=== PATIENT | female | born 1990 | race Caucasian/White ===

== ENCOUNTER 2018-04-10 19:33 | Emergency (ER) | payer OTHER ==
[2018-04-10 19:57] VITALS: BP 130/67; PULSE 94; TEMP 98.1; BMI 18.6
[2018-04-10] MEDS ORDERED: SUMATRIPTAN SUCCINATE 6 MG/0.5 ML VIAL SQ ONE (20:22)
--- NOTE | 2018-04-10 20:29 | PDOC ---
History of Present Illness - General Chief Complaint: Headache Stated Complaint: HEADACHE Time Seen by Provider: 04/10/18 20:09 History Source: Patient Exam Limitations: No Limitations - History of Present Illness Initial Comments: 04/10/18 20:27 27F with pmh of asthma/bronchitis and migraine presents to the ED with headache and vomiting since today. She's had unremitting symptoms all day, not able to keep anything down. Bright light makes her uncomfotable and she had to call in sick for work at [employer]. She usually has photophobia during her migraines but she never vomited. She states that she hit her head against a glass panel at work on Friday and had a bump following that. Tried Motrin but with little benefit. 04/10/18 20:31 Past History - Past Medical History Allergies/Adverse Reactions: Allergies Allergy/AdvReac Type Severity Reaction Status Date / Time No Known Allergies Allergy Verified 03/06/15 20:19 Home Medications: Ambulatory Orders Sumatriptan Succ/Naproxen Sod [Sumatriptan-Naproxen 85-500 mg] 1 each PO PRN PRN #14 tablet 04/10/18 Asthma: Yes - Suicide/Smoking/Psychosocial Hx Smoking History: Former smoker Have you smoked in the past 12 months: No Information on smoking cessation initiated: No Hx Alcohol Use: No Drug/Substance Use Hx: No Review of Systems - Review of Systems Able to Perform ROS?: Yes Is the patient limited Sami proficient: No Constitutional: No: Symptoms Reported HEENTM: No: Symptoms Reported, Eye Pain, Blurred Vision, Tearing, Recent change in vision Respiratory: No: Symptoms reported Cardiac (ROS): No: Symptoms Reported ABD/GI: Yes: Nausea, Vomiting : No: Symptoms Reported Musculoskeletal: No: Symptoms Reported Integumentary: No: Symptoms Reported Neurological: Yes: Headache. No: Numbness, Seizure, Tremors, Weakness, Unsteady Gait, Ataxia All Other Systems: Reviewed and Negative *Physical Exam - Vital Signs Last Vital Signs Temp Pulse Resp BP Pulse Ox 98.1 F 94 H 18 130/67 100 04/10/18 19:52 04/10/18 19:52 04/10/18 19:52 04/10/18 19:52 04/10/18 19:52 - Physical Exam General Appearance: Yes: Nourished, Appropriately Dressed, Thin. No: Apparent Distress HEENT: positive: EOMI, NOAH, Normal ENT Inspection, Photophobia Respiratory/Chest: negative: Chest Tender, Lungs Clear, Normal Breath Sounds Cardiovascular: positive: Regular Rhythm, Regular Rate, S1, S2, Tachycardia Gastrointestinal/Abdominal: positive: Normal Bowel Sounds, Flat, Soft. negative : Tender, Organomegaly Musculoskeletal: positive: Normal Inspection. negative: CVA Tenderness Extremity: positive: Normal Capillary Refill, Normal Inspection, Normal Range of Motion Integumentary: positive: Normal Color, Dry, Warm Neurologic: positive: Fully Oriented, Alert, Normal Mood/Affect, Normal Response Medical Decision Making - Medical Decision Making 04/10/18 20:31 Headache is consistent with migraine presentation. Will treat with sumatriptan. Dont think that imaging is warranted, hit her head 4 days ago. 04/10/18 20:32 04/10/18 23:07 CT head Negative. *DC/Admit/Observation/Transfer Diagnosis at time of Disposition: Migraine - Discharge Dispostion Disposition: HOME Condition at time of disposition: Good Decision to Admit order: No - Referrals - Patient Instructions Printed Discharge Instructions: DI for Migraine Additional Instructions: Come back to the Ed for any new, worsening or concerning symptoms. backup engineer your prescription at the pharmacy. - Post Discharge Activity
--- NOTE | 2018-04-10 20:33 | PDOC ---
Attending Attestation - HPI HPI: The patient is a 27 year old female with a significant past medical history of asthma/bronchitis and migraines who presents to the emergency department for evaluation of headache and vomiting since today. The patient reports moderate frontal headache with associated vomiting since this morning. She reports associated symptom of photophobia. Pt states she had to call in sick for work at [employer]. The patient endorses history of migraines, but denies vomiting. She reports hitting her head against a glass panel at work on Friday and had a bump following that. Pt reports taking Motrin and Percocet with no alleviation to symptoms. The patient denies chest pain, shortness of breath, fever, chills, and any urinary/bowel symptoms. Allergies: NKDA. Social History: No reported alcohol, cigarette, or drug use. - Physicial Exam PE: GENERAL: Awake, alert, and fully oriented, in no acute distress HEAD: No signs of trauma EYES: PERRLA, EOMI, sclera anicteric, conjunctiva clear ENT: Auricles normal inspection, hearing grossly normal, nares patent, oropharynx clear without exudates. Moist mucosa NECK: Normal ROM, supple, no lymphadenopathy, JVD, or masses LUNGS: Breath sounds equal, clear to auscultation bilaterally. No wheezes, and no crackles HEART: Regular rate and rhythm, normal S1 and S2, no murmurs, rubs or gallops ABDOMEN: Soft, nontender, normoactive bowel sounds. No guarding, no rebound. No masses EXTREMITIES: Normal range of motion, no edema. No clubbing or cyanosis. No cords, erythema, or tenderness NEUROLOGICAL: Cranial nerves II through XII grossly intact. Normal speech, normal gait SKIN: Warm, Dry, normal turgor, no rashes or lesions noted. - Medical Decision Making Pt states she feels much better after Imitrex. <Melani Barakat - Last Filed: 04/10/18 23:27> - Resident Resident Name: Hugo Saba - ED Attending Attestation I have performed the following: I have examined & evaluated the patient, The case was reviewed & discussed with the resident, I agree w/resident's findings & plan - HPI HPI: 04/10/18 23:19 Pt comes with frontal JACKSON liuke her migraine. But states that NSAIDS are not helping the migraine as they usually do. 5 days ago she struck her head on a window/shelf at the [employer] [employer] [facility] [employer] where she works. - Medical Decision Making 04/11/18 06:36 CT head is normal; no subdural hematoma or other pathologic findings. Pt has a normal neuro exam and normal affect. SHe will follow with neuro as an outpatient and she will be given imitrex PO, as she responded well to them. <Montserrat St - Last Filed: 04/11/18 06:37> Attestations - Attestations Documentation prepared by Melani Barakat, acting as medical front desk coordinator for Montserrat [address] MD. <Melani Barakat - Last Filed: 04/10/18 23:27>
[2018-04-10 21:02] LABS: URINE APPEARANCE SLCLOUDY; URINE BILIRUBIN NEGATIVE (<2.0 mg/dL); URINE COLOR YELLOW; URINE GLUCOSE (UA) NEGATIVE (NEGATIVE); URINE KETONE TRACE (NEGATIVE); URINE LEUK ESTERASE NEGATIVE (NEGATIVE); URINE NITRITE NEGATIVE (NEGATIVE); URINE UROBILINOGEN NEGATIVE mg/dL (0.2-1.0)
[2018-04-10 21:03] LABS: HCG,QUALITATIVE URINE NEGATIVE; URINE PROTEIN 1+ (NEGATIVE)
[2018-04-10 21:06] LABS: EPI CELLS MANY /HPF (FEW); URINE BACTERIA RARE /hpf (NONE SEEN); URINE MUCUS MANY
== END 2018-04-10 23:35 | disposition home or self-care (01) ==
LOC: JER 19:33
PROC: 3E023GC Introduction of Other Therapeutic Substance into Muscle, Percutaneous Approach (ICD-10-PCS; principal; 2018-04-10)
DX: G43.909 Migraine, unspecified, not intractable, without status migrainosus (principal)
CPT/HCPCS: 70450-TC; 81003; 81015; 84703; 96372; 99282-25

== ENCOUNTER 2019-11-09 16:10 | Emergency (ER) | payer OTHER ==
[2019-11-09 16:47] VITALS: BP 142/79; PULSE 123; TEMP 98.7; BMI 21.2
[2019-11-09] MEDS ORDERED: DEXAMETHASONE LIQUID 0.5 MG/5 ML PO ONE (16:52)
--- NOTE | 2019-11-09 16:52 | PDOC ---
Rapid Medical Evaluation Chief Complaint: Sore Throat Medical Evaluation: Allergies Allergy/AdvReac Type Severity Reaction Status Date / Time No Known Allergies Allergy Verified 11/09/19 16:44 Vital Signs Temp Pulse Resp BP Pulse Ox 98.7 F 123 H 18 142/79 99 11/09/19 16:44 11/09/19 16:44 11/09/19 16:44 11/09/19 16:44 11/09/19 16:44 11/09/19 16:51 Pt c/o: continual diff swallowing, recent strep, on amoxicillin, hx enlarged tonsils but worse when gets strep Pt on brief exam: 3-4+ tosills, uvula midline, no erythema or exudate, Pt ordered for: decadron pt to proceed to the ED Discharge Disposition - Diagnosis Strep pharyngitis - Discharge Dispostion Disposition: HOME Condition at time of disposition: Stable - Prescriptions Prescriptions: Amox-Tr/K Cl [Augmentin - 875Mg Tablet] 1 tab PO BID #14 tablet predniSONE [Deltasone -] 40 mg PO DAILY #8 tablet - Referrals Referrals: Milton Calderon MD [Staff Physician] - Pasquale Interiano MD [Staff Physician] - - Patient Instructions Printed Discharge Instructions: DI for Strep Throat Additional Instructions: You have strep throat. This is a bacterial infection. Please take the Augmentin twice a day for one week with food. Please finish the prescription even if you feel better. You may take Tylenol 650 mg every 4 hours as needed for pain or fever. Take the prednisone as directed. Warm water gargles and cough drops and just may also help her symptoms. Please throw way your toothbrush 3 days into treatment to prevent reinfection. Please follow up with your primary care doctor next week. Return to emergency department if you have worsening pain, difficulty swallowing , changes in your voice, lightheadedness, dizziness, or any changes in your symptoms. - Post Discharge Activity Work/School Note: Back to Work
[2019-11-09] MEDS ORDERED: DEXAMETHASONE SOD PHOSPHATE 10 MG/1 ML VIAL ONE (18:33)
--- NOTE | 2019-11-09 18:43 | PDOC ---
History of Present Illness - General Chief Complaint: Sore Throat Stated Complaint: SORE THROAT Time Seen by Provider: 11/09/19 16:53 History Source: Patient Exam Limitations: No Limitations Past History - Travel Traveled outside of the country in the last 30 days: No Close contact w/someone who was outside of country & ill: No - Past Medical History Allergies/Adverse Reactions: Allergies Allergy/AdvReac Type Severity Reaction Status Date / Time No Known Allergies Allergy Verified 11/09/19 16:44 Home Medications: Ambulatory Orders Amox-Tr/K Cl [Augmentin - 875Mg Tablet] 1 tab PO BID #14 tablet 11/09/19 predniSONE [Deltasone -] 40 mg PO DAILY #8 tablet 11/09/19 Asthma: Yes COPD: No - Psycho Social/Smoking Cessation Hx Smoking History: Never smoked Have you smoked in the past 12 months: No Hx Alcohol Use: No Drug/Substance Use Hx: No Review of Systems - Review of Systems Able to Perform ROS?: Yes Comments:: 11/09/19 18:46 CONSTITUTIONAL: Absent: fever, chills, diaphoresis, generalized weakness, malaise, loss of appetite HEENT: Present: Throat pain absent: rhinorrhea, nasal congestion, throat swelling, difficulty swallowing, mouth swelling, ear pain, eye pain, visual Changes RESPIRATORY: Absent: cough, shortness of breath, dyspnea with exertion, orthopnea, wheezing, stridor, hemoptysis GASTROINTESTINAL: Absent: abdominal pain, abdominal distension, nausea, vomiting, diarrhea, constipation, melena, hematochezia MUSCULOSKELETAL: Absent: myalgia, arthralgia, joint swelling SKIN: Absent: rash, itching, pallor NEUROLOGIC: Absent: headache, focal weakness or paresthesias, dizziness, unsteady gait, seizure, mental status changes, bladder or bowel incontinence PSYCHIATRIC: Absent: anxiety, depression, suicidal or homicidal ideation, hallucinations. Is the patient limited Frisian proficient: No *Physical Exam - Vital Signs Last Vital Signs Temp Pulse Resp BP Pulse Ox 98.7 F 123 H 18 142/79 99 11/09/19 16:44 11/09/19 16:44 11/09/19 16:44 11/09/19 16:44 11/09/19 16:44 - Physical Exam 11/09/19 18:47 GENERAL: The patient is awake, alert, and fully oriented, in no acute distress. HEAD: Normal with no signs of trauma. EYES: Pupils equal, round and reactive to light, extraocular movements intact, sclera anicteric, conjunctiva clear. HEENT: No nasal congestion or rhinorrhea. No sinus Tenderness. Mucous membranes are moist. 3+ erythematous tonsils no exudate noted. Uvula is midline. No TM bulging, dullness or erythema EXTREMITIES: Normal range of motion, no edema. NEUROLOGICAL: Normal speech, normal gait. PSYCH: Normal mood, normal affect. SKIN: Warm, Dry, normal turgor, no rashes or lesions noted. ED Treatment Course - Medications Given in the ED: ED Medications Discontinued Medications Generic Name Dose Route Start Last Admin Trade Name Dagoq PRN Reason Stop Dose Admin Dexamethasone 10 mg 11/09/19 16:52 11/09/19 18:34 Decadron Liquid - PO 11/09/19 16:53 10 mg ONCE ONE Administration Medical Decision Making - Medical Decision Making 11/09/19 18:47 The patient is a 29-year-old female no past medical history who presents to the ER for sore throat. She states she saw her primary care doctor approximately 8 days ago and tested positive for strep throat. She was placed on clindamycin. She states that the medication has not helped her and that she feels like her throat is still sore and the tonsils are touching. She has been taking Tylenol and Motrin as needed for pain. Denies fevers, chills, cough, nausea, vomiting and diarrhea. A/P: Strep pharyngitis On exam tonsils are still 3+ and erythematous. Uvula is midline Decadron given from [facility]. We will change patient to Augmentin. Have her stop the clindamycin. Short course steroids also sent to her pharmacy. Will refer to ENT. Patient states she has had 5 strep infections within the last month and a half. Discharge home I discussed the physical exam findings, ancillary test results and final diagnoses with the patient. I answered all of the patient's questions. The patient was satisfied with the care received and felt comfortable with the discharge plan and treatment plan. The Patient agrees to follow up with the primary care physician/specialist within 24-72 hours. Return precautions were given. Discharge - Discharge Information Problems reviewed: Yes Clinical Impression/Diagnosis: Strep pharyngitis Condition: Stable Disposition: HOME - Admission No - Additional Discharge Information Prescriptions: Amox-Tr/K Cl [Augmentin - 875Mg Tablet] 1 tab PO BID #14 tablet predniSONE [Deltasone -] 40 mg PO DAILY #8 tablet - Follow up/Referral Referrals: Pasquale Interiano MD [Staff Physician] - Milton Calderon MD [Staff Physician] - - Patient Discharge Instructions Patient Printed Discharge Instructions: DI for Strep Throat Additional Instructions: You have strep throat. This is a bacterial infection. Please take the Augmentin twice a day for one week with food. Please finish the prescription even if you feel better. You may take Tylenol 650 mg every 4 hours as needed for pain or fever. Take the prednisone as directed. Warm water gargles and cough drops and just may also help her symptoms. Please throw way your toothbrush 3 days into treatment to prevent reinfection. Please follow up with your primary care doctor next week. Return to emergency department if you have worsening pain, difficulty swa llowing, changes in your voice, lightheadedness, dizziness, or any changes in your symptoms. - Post Discharge Activity Work/Back to School Note: Back to Work
[2019-11-09] MEDS ORDERED: AMOX TR/POT CLAV 875MG/125MG TABLETS (FP) PO ONE (18:45)
[2019-11-09] MEDS ORDERED: AMOX TR/POT CLAV 875MG/125MG TABLETS (FP) ONE (18:47)
== END 2019-11-09 19:06 | disposition home or self-care (01) ==
LOC: JERFT 16:10
DX: J02.0 Streptococcal pharyngitis (principal); B95.5 Unspecified streptococcus as the cause of diseases classified elsewhere; Z87.09 Personal history of other diseases of the respiratory system
CPT/HCPCS: 99281-25

== ENCOUNTER 2022-08-02 12:31 | Emergency (ER) | payer OTHER ==
[2022-08-02 12:39] VITALS: BP 130/89; PULSE 100; RESP 18; TEMP 97.9; BMI 26.5
[2022-08-02] MEDS ORDERED: IBUPROFEN 600 MG TABLET (FP) PO ONE ×2 (14:30→14:56)
[2022-08-02] MEDS ORDERED: ACETAMINOPHEN INJECTION 100 ML IVPB ONE (15:35)
== END 2022-08-02 16:02 | disposition home or self-care (01) ==
LOC: JER 12:31
DX: J02.9 Acute pharyngitis, unspecified (principal)
CPT/HCPCS: 87651; 99283-25